=== PATIENT | female | born 1995 | race Caucasian/White ===

== ENCOUNTER 2022-12-12 13:23 | Outpatient (CLI) | payer BC, SELFPAY | END 2022-12-12 13:24 | disposition home or self-care (01) | LOC: NFLDREF 12-13 11:29 | PROVIDERS: PCP Family Medicine; Referring Provider Family Medicine; Visit Provider Obstetrics & Gynecology | DX: O02.1 Missed abortion (principal) | CPT/HCPCS: 84702 ==

== ENCOUNTER 2023-11-02 05:48 | Inpatient (IN) | payer BC, SELFPAY ==
[2023-11-02] VITALS (102 sets, daily range): BP systolic 90–167; BP diastolic 50–90; PULSE 67–149; RESP 16; TEMP 36.4–37.1; O2SAT 92–100; BMI 29.9
[2023-11-02 07:05] LABS: Basophils Percent Auto 0.4 % (0.0-3.0); Hematocrit 37.2 % (33.0-51.0); Immature Granulocytes Pct Auto 2.1 %; Lymphocytes Percent Auto 16.2 % (20-44); Mean Corpuscular HGB Conc 32 gm/dL (32-36); Mean Corpuscular Hemoglobin 29 pg (26-34); Mean Corpuscular Volume 91 fL (80-100); Neutrophils Percent Auto 69.3 % (42.0-72.0); Platelet Count* 232 K/uL (140-440); Red Blood Count 4.09 m/uL (4.00-5.20); White Blood Count* 15.96 K/uL (4.50-11.00)
[2023-11-02 07:06] LABS: Slide Review Reflex No
[2023-11-02 07:50] LABS: Alanine Aminotransferase* 13 U/L (4-35); Aspartate Amino Transferase* 24 U/L (12-35)
--- NOTE | 2023-11-02 07:54 | PM.OBHPLI ---
OB - H&P: HPI Labor/Induction History of Present Illness Date Seen: 11/02/23 Chief Complaint: The patient is a 28 year old 2 para 0 at 37 weeks gestation by LMP and confirmed with 1st trimester US, who presents for IOL for cholestasis of and preeclampsia. Chief complaint: Cholestasis, Preeclampsia : 2 Para: 0 Indications for induction: pre-eclampsia and other (cholestasis) Narrative: Ada Neal is a 28 year old at 37 weeks by lmp and confirmed with 1st trimester US. has been uncomplicated until 35 weeks when she developed itching on soles of feet. Her LFTs were normal, but bile acid level was elevated. She was started on ursidiol for symptomatic treatment with good relief. On 10/28, she was noted to have high BP in clinic, preeclampsia labs normal other than urine prot:creat of 0.3. Because of both these complications, induction recommended. She has continued ot have elevated BPs at home typically 140s/80-90s. No headaches, no vision changes, RUQ or epigastric pain. She has been having mild, irregular contractions, but no LOF. Baby is active. No other concerns today. History of Present Dating criteria: based on LMP care: good care Ultrasounds: normal 1st trimester US and normal mid trimester US complications: preeclampsia Medical complications: gastrointestinal (cholestasis of ) Labs Blood type: A (+) positive Rubella: immune RPR/VDLR: nonreactive GBS status: negative HBsAG: negative Review of Systems Status of ROS: Reports: 6 or more systems reviewed and unremarkable except as noted in History and below Meds Home Medications and Allergies Home Medications Medication Instructions Recorded Confirmed Type loratadine 10 mg tablet (Claritin) 10 mg PO DAILY 11/02/23 11/02/23 History ursodiol 300 mg capsule 300 mg PO 3XD 11/02/23 11/02/23 History Allergies Allergy/AdvReac Type Severity Reaction Status Date / Time adhesive tape Allergy Mild Rash Verified 11/02/23 06:15 Sulfa (Sulfonamide Allergy Mild Rash Verified 11/02/23 06:15 Antibiotics) sumatriptan [From Imitrex] Allergy Mild facial pain Verified 11/02/23 06:15 Gluten Allergy Mild Gastrointestinal Uncoded 11/02/23 06:15 Upset minocycline Allergy Mild Unknown Uncoded 11/02/23 06:15 OB - H&P: Exam Physical Exam: Vital signs: Temp Pulse BP Pulse Ox 98.1 F 81 144/86 H 98 11/02/23 06:23 11/02/23 06:35 11/02/23 06:35 11/02/23 06:23 Constitutional: Constitutional: no acute distress Routine HEENT Exam: Head: Present atraumatic and normal inspection Eye: Present conjunctival injection and EOMI ENT: Present mucous membranes moist Routine Neck Exam: Neck: Present full ROM Routine Respiratory Exam: Respiratory: Present CTA bilaterally Routine Cardiovascular Exam: Cardiovascular: RRR Routine Exam: Perineum Description: Normal Detailed Labor and Delivery Exam: Patient Gravid: Yes Dilation (cm): 4 Effacement (%): 80 Cervix position: mid Consistency: soft Cervical ripeness score: 9 Contraction frequency (min): 11 Fetus (Single): Station: -2 Amniotic Membrane Status: AROM Amniotic Membrane Fluid Description: Clear Heart Rate Baseline: 135 Monitor Accelerations: Present Monitor Decelerations: None Residential Variability: Moderate (6-25) Routine Extremities Exam: Comments: trace edema Routine Neurological Exam: Present alert, oriented X3 and CN II-XII intact Routine Psychiatric Exam: Present normal affect and normal thought process OB - Results Labs Labs: Short CBC 11/02/23 Range/Units 06:53 WBC 15.96 H (4.50-11.00) K/uL Hgb 12.0 (12.0-16.0) gm/dL Hct 37.2 (33.0-51.0) % Plt Count 232 (140-440) K/uL OB - Problem Based A/P Additional Plan (1) Term : Status: Acute (2) Cholestasis during : Status: Acute (3) Preeclampsia: Status: Acute Plan Patient underwent amniotomy with return of large amount of clear fluid. Pitocin per protocol if does not go into labor. Preeclampsia labs. Discussed management of preeclampsia and how that woudl change if develops severe symptoms, abnormal labs or severe range BPs. Delivery/Labor/Induction Plan Plan: induction Induction method: per pitocin protocol
[2023-11-02] MEDS: LACTATED RINGERS 1000 ML 1,000 ML 125 ML IV (09:32)
[2023-11-02] MEDS: OXYTOCIN 30 unit/500 ML in NS 30 UNIT/500 ML BAG IVPB (09:33)
[2023-11-02] MEDS: ursodioL 300 MG CAPSULE PO ×2 (09:54→11:32)
[2023-11-02] MEDS: LIDOCAINE 2% (PF) 5 ML VIAL EPIDURAL (13:25)
[2023-11-02] MEDS: LACTATED RINGERS 1000 ML 1,000 ML 123 ML IV (13:33)
[2023-11-02] MEDS: ROPIVACAINE 0.2% 100 ml 100 ML 10 MG EPIDURAL (13:40)
[2023-11-02] MEDS: PHENYLEPHRINE 100 MCG/ML SYRINGE IVP ×3 (13:45→13:52)
[2023-11-02] MEDS: ONDANSETRON 2 MG/ML inj 4 MG IV (14:11)
[2023-11-02] MEDS: ePHEDrine sulfate 5 MG/ML inj 10 MG IVP (14:29)
[2023-11-02] MEDS: LIDOCAINE 1 % PF 30 ML INJECTION (18:09)
--- NOTE | 2023-11-02 18:28 | W.PM.VAGDEL1 ---
Procedure Delivery date: 11/02/23 Procedure Done: Global Events: Pre-Eclampsia and Other (cholestasis) Intrapartal Events: Labor Induction Delivery augmentation: pitocin Delivery monitor: external FHT and external uterine Route of delivery: Laceration description: Perineal - 2nd Degree Delivery repair: Vicryl Estimated blood loss (mL): 100 Anesthesia type: Epidural Narrative: The patient is a 28 year-old admitted on 11/01/2026 at 37 Weeks, 0 Days gestation for IOL for preeclampsia and cholestasis of .? Cervical exam on admission was 3 cm/80 % effaced/-2 station with membranes intact in vertex presentation.? Contractions were absent.? heart rate demonstrated baseline 145 bpm with moderate variability, + accelerations, - decelerations; a category 1 tracing.? AROM occurred at 0740 with clear fluid. ? Labor Analgesia:? epidural ? Pitocin:? yes ? Labor onset:? 1325 ? Complete:? 1643 ? Pushing:? 1706 ? heart tones during second stage were category 1. ? At 1800 a viable female delivered in vertex OA presentation over intact perineum via spontaneous vaginal delivery.? was placed on maternal abdomen.? Cord was clamped and cut after a 30-60 second delay.? Nose and mouth were bulb suctioned.? Infant weight pending.? 8 at 1 minute and 9 at 5 minutes.? Shoulder dystocia: no.? Nuchal cord: Yes, tight, reduced after delivery. ? Placenta delivered spontaneously and complete at 1803 with a 3 vessel cord. ? Mother and infant were stable after delivery. ? Lacerations:? 2nd degree, repaired with 3-0 vicryl suture. ? Blood loss: 100 mL. Blood loss measurement type: QBL ? Sponge and needles counts are correct. Infant Gender: Female presentation: vertex Placental Delivery Description: Spontaneous Cord Description: 3 Vessels and Nuchal Cord
--- NOTE | 2023-11-02 18:32 | PM.ANBPRC ---
[facility] Medical History Preeclampsia ?O14.90 - Unspecified pre-eclampsia, unspecified trimester (ICD-10) Cholestasis during ?O26.649 - Intrahepatic cholestasis of , unspecified trimester (ICD-10) Migraines ?G43.909 - Migraine, unspecified, not intractable, without status migrainosus (ICD-10) GERD (gastroesophageal reflux disease) ?K21.9 - Gastro-esophageal reflux disease without esophagitis (ICD-10) Surgical History S/P lumpectomy of breast ?Z98.890 - Other specified postprocedural states (ICD-10) H/O wisdom tooth extraction ?K08.409 - Partial loss of teeth, unspecified cause, unspecified class (ICD-10) Family History Other Alcohol dependence Diabetes Heart disease High cholesterol Social History What is your current living situation?: I presently have a place to live Problems where you live: no known problems In the past 12 months, utilities in danger of being shut off: no In past 12 months, lack of transportation kept you from medical appts, meetings, work, or getting things needed for daily living: no In the past 12 mos, have been you worried that your food would run out before you had money to buy more?: never true In the past 12 mos, the food you bought just didn't last and you didn't have money to buy more?: never true Smoking Status: Never smoker How often does anyone, including family, friends and others, physically hurt you: never How often does anyone, including family, friends and others, insult or talk down to you: never How often does anyone, including family, friends and others, threaten you with harm: never How often does anyone, including family, friends and others, scream or curse at you: never Meds Home Medications and Allergies Home Medications Medication Instructions Recorded Confirmed Type loratadine 10 mg tablet (Claritin) 10 mg PO DAILY 11/02/23 11/02/23 History ursodiol 300 mg capsule 300 mg PO 3XD 11/02/23 11/02/23 History Allergies Allergy/AdvReac Type Severity Reaction Status Date / Time adhesive tape Allergy Mild Rash Verified 11/02/23 06:15 Sulfa (Sulfonamide Allergy Mild Rash Verified 11/02/23 06:15 Antibiotics) sumatriptan [From Imitrex] Allergy Mild facial pain Verified 11/02/23 06:15 Gluten Allergy Mild Gastrointestinal Uncoded 11/02/23 06:15 Upset minocycline Allergy Mild Unknown Uncoded 11/02/23 06:15 Results Labs Labs: Laboratory Results - last 24 hr 11/02/23 11/02/23 06:53 06:54 WBC 15.96 H RBC 4.09 Hgb 12.0 Hct 37.2 MCV 91 MCH 29 MCHC 32 RDW Coeff of Sari 15.0 Plt Count 232 Neut % (Auto) 69.3 Lymph % (Auto) 16.2 L [place] % (Auto) 9.0 Eos % (Auto) 3.0 Baso % (Auto) 0.4 Neut # (Auto) 11.10 H Lymph # (Auto) 2.60 [place] # (Auto) 1.40 H Eos # (Auto) 0.50 Baso # (Auto) 0.10 Abs Immat Gran (auto) 0.30 Imm/Tot Granulo (auto) 2.1 AST 24 ALT 13 Blood Type A Positive Antibody Screen NEGATIVE Vital Signs Vital Signs: Last Vital Signs Temp 98.7 F 11/02/23 15:41 Pulse 103 H 11/02/23 18:31 BP 125/73 11/02/23 18:31 Pulse Ox 92 11/02/23 18:12 Weight: 74.435 kg Height: 157.48 cm Anesthesia Procedures Epidural Insertion Patient Location: OB Start Time: 13:15 Stop Time: 13:45 Start Date: 11/02/23 Stop Date: 11/02/23 Reason for Block: procedure for pain Patient Position: sitting Performed By: Soto Bustamante Preanesthetic Checklist: IV checked, risks and benefits discussed, monitors and equipment checked, pre-op evaluation, timeout performed and anesthesia consent Prep: chlorhexidine gluconate Monitoring: blood pressure monitoring, continuous pulse oximetry and heart rate Approach: midline Vertebral Space: lumbar (1-5) Epidural Technique: RAGHU saline Needle Type: Tuohy needle Injection Technique: continuous catheter Needle gauge: 17 Needle Length (cm): 10 cm Needle Insertion Depth (cm): 6 Catheter Gauge: 19 Catheter Type: multi-orifice Catheter at skin depth (cm): 12 Test Dose Result: negative and lidocaine 1.5% with epinephrine 1 to 200,000
[2023-11-02] MEDS: ACETAMINOPHEN 500 MG TABLET 1000 MG PO (22:38)
[2023-11-03] VITALS (8 sets, daily range): BP systolic 123–150; BP diastolic 74–89; PULSE 79–98; RESP 16–18; TEMP 36.3–37.2; O2SAT 95–97
[2023-11-03] MEDS: ACETAMINOPHEN 500 MG TABLET 1000 MG PO ×3 (04:50→17:04)
[2023-11-03 07:19] LABS: Hematocrit 34.5 % (33.0-51.0); Mean Corpuscular HGB Conc 32 gm/dL (32-36); Mean Corpuscular Hemoglobin 29 pg (26-34); Mean Corpuscular Volume 92 fL (80-100); Platelet Count* 222 K/uL (140-440); Red Blood Count 3.75 m/uL (4.00-5.20)
[2023-11-03 07:30] LABS: Slide Review Reflex No
[2023-11-03 07:37] LABS: Creatinine* 0.7 mg/dL (0.5-1.5); Est. Creatinine Clearance* 93.79; Estimated Glomerular Filt Rate 120 ml/min
[2023-11-03 07:38] LABS: Alanine Aminotransferase* 13 U/L (4-35); Aspartate Amino Transferase* 31 U/L (12-35); Blood Urea Nitrogen* 11 mg/dL (5-24)
[2023-11-03] MEDS: IBUPROFEN 600 MG TABLET PO ×3 (08:43→20:50)
[2023-11-03] MEDS: DOCUSATE SODIUM 100 MG CAPSULE PO (08:44)
[2023-11-03] MEDS: ursodioL 300 MG CAPSULE PO (08:46)
--- NOTE | 2023-11-03 09:47 | PM.OBPNVD1 ---
OB - PN:Subj Subjective Time Seen by Provider: 09:00 Date Seen: 11/03/23 Interval history: pt seen in routine rounds. Is pumping and bottle feeding, supplementing with donor milk. Initial high bp after delivery 167/86, repeat 146/76. Overnight bp's 140/80-90 but this morning last two 125/76, 123/74. Has not received any bp meds. Reports voiding, ambulating, tolerating orals. No concerns. Patient comments OB post-: no complaints Patient comments OB post-: no complaints OB - PN: Obj Exam Physical Exam: Vital signs: Temp Pulse Resp BP Pulse Ox O2 Del Method 97.3 F L 98 16 124/88 97 Room Air 11/03/23 09:14 11/03/23 09:14 11/03/23 09:14 11/03/23 09:14 11/03/23 09:14 11/03/23 09:14 Constitutional: Constitutional: no acute distress and cooperative Routine Abdominal Exam: Fundus: Present firm (below umbilicus) OB - PN: Obj Data Labs Labs: Laboratory Results - last 24 hr 11/03/23 06:45 WBC 19.20 H RBC 3.75 L Hgb 11.0 L Hct 34.5 MCV 92 MCH 29 MCHC 32 Plt Count 222 BUN 11 Creatinine 0.7 Estimated Creat Clear 93.79 Estimated GFR 120 AST 31 ALT 13 OB - PN: A/P Delivery Assessment and Plan (1) Term : Status: Acute (2) Cholestasis during : Status: Acute (3) Preeclampsia: Status: Acute Assessment and Plan: Had 1 bp in severe range initially after delivery, repeat below severe range. asymptomatic. Last 2 bps much better 125/76, 123/74. Labs this morning wnl. Discussed with mom we will monitor for now. If Bp's recurrently >/=140/90, will meed meds. All ?'s answered. continue routine care otherwise
--- NOTE | 2023-11-03 15:24 | PM.ANPOST ---
Post Anesthesia Note Post Anesthesia Note Patient seen: Inpatient Respiratory Status: adequate Cardiovascular Status: adequate Mental Status: baseline Pain: adequate Temp: baseline Anesthetic awareness: N/A Complications: none Follow care: none
[2023-11-03] MEDS: LABETALOL HCL 100 MG TABLET PO (19:47)
[2023-11-03 23:24] LABS: Rapid Plasma Reagin (RPR) Non Reactive (Non Reactive)
[2023-11-04] VITALS: BP 133/74; PULSE 85; RESP 16; TEMP 36.7; O2SAT 96
[2023-11-04] MEDS: ACETAMINOPHEN 500 MG TABLET 1000 MG PO ×2 (00:13→06:24)
[2023-11-04 03:11] VITALS: BP 123/82
[2023-11-04] MEDS: IBUPROFEN 600 MG TABLET PO (03:13)
[2023-11-04 06:25] VITALS: BP 130/77
[2023-11-04 06:36] LABS: Mean Corpuscular HGB Conc 31 gm/dL (32-36); Mean Corpuscular Hemoglobin 29 pg (26-34); Mean Corpuscular Volume 93 fL (80-100); Platelet Count* 237 K/uL (140-440); Red Blood Count 3.76 m/uL (4.00-5.20); White Blood Count* 15.28 K/uL (4.50-11.00)
[2023-11-04 06:43] LABS: Slide Review Reflex No
[2023-11-04 07:24] LABS: Alanine Aminotransferase* 15 U/L (4-35); Aspartate Amino Transferase* 29 U/L (12-35); Blood Urea Nitrogen* 13 mg/dL (5-24); Creatinine* 0.7 mg/dL (0.5-1.5); Est. Creatinine Clearance* 93.79; Estimated Glomerular Filt Rate 120 ml/min
--- NOTE | 2023-11-04 07:38 | PM.OBDSVD1 ---
DS: Providers Provider Time Seen by Provider: 07:38 Date Seen: 11/04/23 Date of admission: 11/02/23 05:48 Primary care physician: Bre Coe MD Admitting Clinician: Bre Coe MD Attending Physician on discharge: Bre Coe MD Date of Discharge: 11/04/23 DS: Diagnosis Discharge Diagnosis (1) Preeclampsia: Status: Acute Problem details: BP's in mild preeclampsia range except one which was improved on 15min recheck. Asymptomatic. Labetalol started . Preeclampsia labs wnl . (2) Cholestasis during : Status: Acute (3) Term : Status: Acute Exam Const: Vital Signs, click to edit/add: Vital Signs - 24 hr 11/03/23 09:14 11/03/23 11:58 11/03/23 16:45 Temperature 97.3 F L 97.7 F 97.8 F Pulse Rate [Pulse Oximeter] 98 86 82 Respiratory Rate 16 16 18 Blood Pressure [Le ft Arm] Blood Pressure [Ri ght Arm] 124/88 123/76 150/85 H Pulse Oximetry 97 97 97 Oxygen Delivery Me thod Room Air Room Air Room Air 11/03/23 17:05 11/03/23 18:55 11/03/23 20:45 Temperature Pulse Rate [Pulse Oximeter] Respiratory Rate Blood Pressure [Le ft Arm] 128/77 Blood Pressure [Ri ght Arm] 138/88 141/89 H Pulse Oximetry Oxygen Delivery Me thod 11/04/23 00:00 11/04/23 03:11 11/04/23 06:25 Temperature 98.0 F Pulse Rate [Pulse Oximeter] 85 Respiratory Rate 16 Blood Pressure [Le ft Arm] 133/74 123/82 130/77 Blood Pressure [Ri ght Arm] Pulse Oximetry 96 Oxygen Delivery Me thod Room Air Documenting provider has reviewed patient's vital signs: yes Common normals: no apparent distress, healthy appearing and alert : Uterus: U/1 and firm Neuro: Sensorium/orientation: alert OB - DS: Summary Hospital Course Hospital Course: The patient is a 28 year old G 2 P 1 at 37 weeks gestation that was admitted to the Center on 11/02/23 for induction due to cholestasis and preeclampsia. She had an uncomplicated vaginal delivery. She delivered a viable female infant. She is pumping and bottle feeding breast and donor milk. the patient has done well. On day of d/c pt is ambulating, voiding, tolerating orals without difficulty. No headaches. She feels ready to go home. Peripartum Data Infant delivery method: Vaginal Laceration description: Perineal - 2nd Degree Infant Gender: Female Discharge Plan: Home Time Spent with Patient Time attestation: Total time spent providing and/or coordinating discharge services: Discharge Plan Discharge Disposition: Home, Self-Care Date of Admission: 11/02/23 05:48 Primary Care Provider: Bre Coe Condition: Stable Anticipated Discharge Date/Time: 11/04/23 08:30 Discharge Medications: New acetaminophen 500 mg Tablet 1,000 mg PO Q6H PRNQty: 60 0RF docusate sodium 100 mg Capsule 100 mg PO DAILY Qty: 30 0RF ibuprofen 600 mg Tablet 600 mg PO Q6H PRNQty: 30 0RF labetalol 100 mg Tablet 100 mg PO BID Qty: 60 0RF Continued loratadine [Claritin] 10 mg tablet 10 mg PO DAILY Discontinued ondansetron 4 mg tablet,disintegrating 4 - 8 mg PO ONCE PRN (Reason: nausea and vomiting) Qty: 2 0RF ursodiol 300 mg capsule 300 mg PO 3XD Discharge Orders: Discharge Order (Routine); Ordered 11/04/23 Ordered By: Mariam Barber Patient Education: OB Vaginal/Breast Feeding Activity Detail: Pelvic rest x 6 weeks Discharge Diet: Regular Follow Up Appointments: Bre Coe MD [Primary Care Provider] - ([facility] BP check at baby's check Sunday 1:55pm) Forms: charming charlieth Info Instructions Discharge Comments: Check BP once a day after sitting and relaxed for 15min. Keep log and bring to appointments
[2023-11-04 08:36] VITALS: BP 137/78; PULSE 78; RESP 16; TEMP 36.6; O2SAT 96
[2023-11-04] MEDS: LABETALOL HCL 100 MG TABLET PO (08:58)
[2023-11-04] MEDS: DOCUSATE SODIUM 100 MG CAPSULE PO (08:58)
== END 2023-11-04 11:07 | disposition home or self-care (01) | DRG 560 ==
PROVIDERS: Family Medicine; Admitting Provider Family Medicine; PCP Family Medicine; Visit Provider Family Medicine
DX: O26.643 Intrahepatic cholestasis of pregnancy, third trimester (principal); K83.1 Obstruction of bile duct; O14.04 Mild to moderate pre-eclampsia, complicating childbirth; O70.1 Second degree perineal laceration during delivery; Z3A.37 37 weeks gestation of pregnancy; Z37.0 Single live birth
CPT/HCPCS: 01967; 36415; 82565; 84450; 84460; 84520; 85018; 85025; 85027; 86592; 86850; 86900; 86901; 88307; A9270; J2001; J2371; J2405; J2795; J7120